=== PATIENT | female | born 1965 | race Caucasian/White ===

== ENCOUNTER 2020-06-01 08:37 | Emergency (ER) | payer BC ==
[2020-06-01] MEDS ORDERED: CYCLOBENZAPRINE HCL 10 MG TABLET PO ONE (09:49)
[2020-06-01] MEDS ORDERED: HYDROCODONE/ACETAMINOPHEN 5-325 MG TABLET PO ONE (09:51)
--- NOTE | 2020-06-01 09:53 | ER Document Report ---
ED General - General Chief Complaint: Headache Stated Complaint: FACIAL/NECK PAIN,DIARRHEA Time Seen by Provider: 06/01/20 09:26 Primary Care Provider: MAJOR ROBLEDO MD [ACTIVE STAFF] - Follow up as needed Mode of Arrival: Ambulatory Information source: Patient Notes: Patient presents with complain of left sided neck pain, diarrhea, headache and upper abdominal pain. Reports symptoms started yesterday. Denies any known fevers but has had chills. No known covid-19 exposure. - Related Data Allergies/Adverse Reactions: omeprazole Adverse Reaction (Verified 06/01/20 08:49) Past Medical History - General Information source: Patient - Social History Smoking Status: Never Smoker Family History: Reviewed & Not Pertinent Patient has homicidal ideation: No - Past Medical History Cardiac Medical History: Reports: Hx Hypercholesterolemia, Hx Hypertension Endocrine Medical History: Reports: Hx Diabetes Mellitus Type 2 Past Surgical History: Reports: Hx Section - x's 2 Review of Systems - Review of Systems Constitutional: See HPI Gastrointestinal: See HPI Musculoskeletal: See HPI Neurological/Psychological: See HPI Physical Exam - Vital signs Vitals: Temp Pulse BP Pulse Ox 97.5 F 81 160/81 H 96 06/01/20 08:44 06/01/20 08:44 06/01/20 08:44 06/01/20 08:44 - Notes Notes: PHYSICAL EXAMINATION: GENERAL: Well-appearing, well-nourished and in no acute distress. HEAD: Atraumatic, normocephalic. EYES: Pupils equal round and reactive to light, extraocular movements intact, conjunctiva are normal. ENT: Nares patent, oropharynx clear without exudates. Moist mucous membranes. NECK: Normal range of motion, supple without lymphadenopathy. No nuchal rigidity. LUNGS: Breath sounds clear to auscultation bilaterally and equal. No wheezes rales or rhonchi. HEART: Regular rate and rhythm without murmurs ABDOMEN: Soft, nontender, nondistended abdomen. No guarding, no rebound. No masses appreciated. Female : deferred Musculoskeletal: Normal range of motion, no pitting or edema. No cyanosis. Tenderness along the left lateral neck. NEUROLOGICAL: Cranial nerves grossly intact. Normal speech, normal gait. Normal sensory, motor exams PSYCH: Normal mood, normal affect. SKIN: Warm, Dry, normal turgor, no rashes or lesions noted. - HEENT Visual acuity- Right eye: 20/30 Visual acuity- Left eye: 20/40 Visual acuity- Both eyes: 20/25 Corrective lenses worn: No Course - Re-evaluation Re-evalutation: Patient reports improvement of her neck pain after administration of muscle relaxer in the emergency department. Overall she appears well. She does have elevated liver enzymes and some sludge in the gallbladder. No evidence of cholecystitis.. Overall patient feels much improved. She will be given information for surgical follow-up for her gallbladder. She requested COVID-19 testing. This was ordered and performed. Laboratory 06/01/20 06/01/20 06/01/20 10:20 10:20 10:20 WBC 5.3 RBC 5.56 H Hgb 15.7 H Hct 45.4 MCV 82 MCH 28.2 MCHC 34.5 RDW 13.5 Plt Count 237 Lymph % (Auto) 22.7 Rooks % (Auto) 7.6 Eos % (Auto) 3.3 Baso % (Auto) 1.1 Absolute Neuts (auto) 3.5 Absolute Lymphs (auto) 1.2 Absolute Monos (auto) 0.4 Absolute Eos (auto) 0.2 Absolute Basos (auto) 0.1 Seg Neutrophils % 65.3 Sodium 138.1 Potassium 4.6 Chloride 100 Carbon Dioxide 31 H Anion Gap 7 BUN 11 Creatinine 0.67 Est GFR ( Amer) > 60 Est GFR (MDRD) Non-Af > 60 Glucose 162 H Calcium 10.0 Total Bilirubin 0.8 Direct Bilirubin 0.3 Neonat Total Bilirubin Not Reportable Neonat Direct Bilirubin Not Reportable Neonat Indirect Bili Not Reportable AST 214 H ALT 216 H Alkaline Phosphatase 174 H Total Protein 7.4 Albumin 4.4 Urine Color Urine Appearance Urine pH Ur Specific [place] Urine Protein Urine Glucose (UA) Urine Ketones Urine Blood Urine Nitrite Urine Bilirubin Urine Urobilinogen Ur Leukocyte Esterase Urine WBC (Auto) Urine RBC (Auto) Urine Bacteria (Auto) Squamous Epi Cells Auto Urine Mucus (Auto) Urine Ascorbic Acid Influenza A (Rapid) NEGATIVE Influenza B (Rapid) NEGATIVE 06/01/20 10:20 WBC RBC Hgb Hct MCV MCH MCHC RDW Plt Count Lymph % (Auto) Rooks % (Auto) Eos % (Auto) Baso % (Auto) Absolute Neuts (auto) Absolute Lymphs (auto) Absolute Monos (auto) Absolute Eos (auto) Absolute Basos (auto) Seg Neutrophils % Sodium Potassium Chloride Carbon Dioxide Anion Gap BUN Creatinine Est GFR ( Amer) Est GFR (MDRD) Non-Af Glucose Calcium Total Bilirubin Direct Bilirubin Neonat Total Bilirubin Neonat Direct Bilirubin Neonat Indirect Bili AST ALT Alkaline Phosphatase Total Protein Albumin Urine Color YELLOW Urine Appearance CLEAR Urine pH 7.0 Ur Specific [place] 1.017 Urine Protein NEGATIVE Urine Glucose (UA) NEGATIVE Urine Ketones NEGATIVE Urine Blood SMALL H Urine Nitrite NEGATIVE Urine Bilirubin NEGATIVE Urine Urobilinogen NEGATIVE Ur Leukocyte Esterase NEGATIVE Urine WBC (Auto) 1 Urine RBC (Auto) 3 Urine Bacteria (Auto) TRACE Squamous Epi Cells Auto 2 Urine Mucus (Auto) RARE Urine Ascorbic Acid NEGATIVE Influenza A (Rapid) Influenza B (Rapid) - Vital Signs Vital signs: Temp Pulse Resp BP Pulse Ox 97.8 F 62 18 142/74 H 99 06/01/20 14:13 06/01/20 14:13 06/01/20 14:13 06/01/20 14:13 06/01/20 14:13 - Laboratory Result Diagrams: 06/01/20 10:20 06/01/20 10:20 Laboratory results interpreted by me: 06/01/20 06/01/20 06/01/20 10:20 10:20 10:20 RBC 5.56 H Hgb 15.7 H Carbon Dioxide 31 H Glucose 162 H AST 214 H ALT 216 H Alkaline Phosphatase 174 H Urine Blood SMALL H Discharge - Discharge Clinical Impression: Neck pain Abdominal pain Qualifiers: Abdominal location: epigastric Qualified Code(s): R10.13 - Epigastric pain Condition: Stable Disposition: HOME, SELF-CARE Additional Instructions: Your liver enzymes were elevated today. On the gallbladder ultrasound it appears that there is some sludge in her gallbladder. If you continue to have upper abdominal pain please follow-up with the surgical clinic for further evaluation. Return to the emergency department if you develop a fever, persistent abdominal pain or persistent vomiting. Take the muscle relaxer and pain medication as prescribed for your neck pain. This should ease off over the next several days. You may also apply ice to the area. Follow-up with your primary care provider. Prescriptions: Hydrocodone/Acetaminophen [[place] 5-325 mg Tablet] 1 tab PO Q6HP PRN #10 tablet PRN Reason: Cyclobenzaprine HCl [Flexeril 10 mg Tablet] 10 mg PO TIDP PRN #15 tab PRN Reason: Muscle Spasms Forms: Return to Work Referrals: MAJOR ROBLEDO MD [ACTIVE STAFF] - Follow up as needed
[2020-06-01 10:47] LABS: ABSOLUTE BASOPHILS # (AUTO) 0.1 10^3/uL (0.0-0.2); ABSOLUTE EOSINOPHILS # (AUTO) 0.2 10^3/uL (0.0-0.6); ABSOLUTE LYMPHOCYTES (AUTO) 1.2 10^3/uL (0.5-4.7); ABSOLUTE MONOCYTES (AUTO) 0.4 10^3/uL (0.1-1.4); ABSOLUTE NEUT (AUTO) 3.5 10^3/uL (1.7-8.2); BASOPHILS % (AUTO) 1.1 % (0-2); EOSINOPHILS % (AUTO) 3.3 % (0-6); HEMATOCRIT 45.4 % (36.0-47.0); HEMOGLOBIN 15.7 g/dL (12.0-15.5); LYMPHOCYTES % (AUTO) 22.7 % (13-45); MEAN CORPUSCULAR HEMOGLOBIN 28.2 pg (27.0-33.4); MEAN CORPUSCULAR HGB CONC 34.5 g/dL (32.0-36.0); MEAN CORPUSCULAR VOLUME 82 fl (80-97); MONOCYTES % (AUTO) 7.6 % (3-13); PLATELET COUNT 237 10^3/uL (150-450); RED BLOOD COUNT 5.56 10^6/uL (3.72-5.28); RED CELL DISTRIBUTION WIDTH 13.5 % (11.5-14.0); SEGMENTED NEUTROPHILS % (AUTO) 65.3 % (42-78); TOTAL CELLS COUNTED % (AUTO) 100 %; WHITE BLOOD COUNT 5.3 10^3/uL (4.0-10.5)
[2020-06-01 10:54] LABS: APPEARANCE,URINE CLEAR; BILIRUBIN,URINE NEGATIVE (NEGATIVE); COLOR,URINE YELLOW; GLUCOSE, URINE NEGATIVE (NEGATIVE); KETONES,URINE NEGATIVE (NEGATIVE); LEUKOCYTE ESTERASE,URINE NEGATIVE (NEGATIVE); NITRITE,URINE NEGATIVE (NEGATIVE); PROTEIN,URINE NEGATIVE (NEGATIVE); URINE SPECIFIC GRAVITY 1.017; UROBILINOGEN,URINE NEGATIVE mg/dL (<2.0)
[2020-06-01 10:59] LABS: A TYPE INFLUENZA AG NEGATIVE (NEGATIVE); B INFLUENZA AG NEGATIVE (NEGATIVE)
[2020-06-01 11:04] LABS: ALBUMIN 4.4 g/dL (3.5-5.0); ALKALINE PHOSPHATASE 174 U/L (38-126); ANION GAP 7 (5-19); ASPARTATE AMINO TRANSFERASE 214 U/L (14-36); BILIRUBIN,DIRECT 0.3 mg/dL (0.0-0.4); BILIRUBIN,TOTAL 0.8 mg/dL (0.2-1.3); BLOOD UREA NITROGEN 11 mg/dL (7-20); CARBON DIOXIDE 31 mmol/L (22-30); CHLORIDE 100 mmol/L (98-107); GLUCOSE 162 mg/dL (75-110); POTASSIUM 4.6 mmol/L (3.6-5.0); TOTAL PROTEIN 7.4 g/dL (6.3-8.2)
--- NOTE | 2020-06-01 13:39 | RADIOLOGY REPORT (SQ) ---
EXAM DESCRIPTION: U/S ABDOMEN LIMITED W/O DOP IMAGES COMPLETED DATE/TIME: 06/01/2020 1:28 pm REASON FOR STUDY: elevated LFTs COMPARISON: None. TECHNIQUE: Dynamic and static grayscale images acquired of the abdomen and recorded on PACS. Additio nal selected color Doppler and spectral images recorded. LIMITATIONS: None. FINDINGS: PANCREAS: The visualized portions of the pancreas appear normal. LIVER: The echogenicity of the hepatic parenchyma is increased. LIVER VASCULATURE: Normal hepatopetal directional flow in the portal veins. GALLBLADDER: The gallbladder wall measures 2 mm in thickness. There is sludge within the gallbladder lumen. There is no pericholecystic fluid. ULTRASOUND-DETECTED WALTERS'S SIGN: Negative. INTRAHEPATIC DUCTS AND COMMON DUCT: The common bile duct measures 6.7 mm in diameter. There is no di latation of the intrahepatic ducts. INFERIOR VENA CAVA: Not assessed. AORTA: No aneurysm. RIGHT KIDNEY: The right kidney measures 10.7 cm in length. There is no hydronephrosis. PERITONEAL AND RIGHT PLEURAL SPACE: No ascites or effusions. OTHER: No other findings. IMPRESSION: 1. Increased echogenicity of the hepatic parenchyma suggestive of diffuse hepatocellula r disease most commonly hepatic steatosis. 2. Gallbladder sludge. TECHNICAL DOCUMENTATION: JOB ID: [id number] [email or web address]- All Rights Reserved Reading location - IP/workstation name: [email or web address]
[2020-06-01 14:21] VITALS: BP 142/74
== END 2020-06-01 14:21 | disposition home or self-care (01) ==
LOC: ER 08:37
DX: M54.2 Cervicalgia (principal); K82.8 Other specified diseases of gallbladder; R19.7 Diarrhea, unspecified; R10.13 Epigastric pain; R51.9 Headache, unspecified; R74.8 Abnormal levels of other serum enzymes; R68.83 Chills (without fever); I10 Essential (primary) hypertension; E11.9 Type 2 diabetes mellitus without complications; Z20.828 Contact with and (suspected) exposure to other viral communicable diseases
CPT/HCPCS: 36415; 76705; 80053; 81001; 85025; 87804; 99284